=== PATIENT | male | born 1990 | race Caucasian/White ===

== ENCOUNTER 2018-03-18 12:24 | Emergency (ER) | payer OTHER ==
[~2018-03-18] VITALS: Ht 195.6 cm; Wt 122.5 kg
[2018-03-18 13:14] LABS: INFLUENZA A ANTIGEN None Detected (None Detect); INFLUENZA B ANTIGEN None Detected (None Detect)
[2018-03-18] MEDS ORDERED: PROAIR HFA8.5 GM INH (13:39)
[2018-03-18 14:04] VITALS: BP 114/78
[2018-03-18] MEDS ORDERED: PROZAC20 MG PO (14:06)
[2018-03-18] MEDS ORDERED: OMEPRAZOLE40 MG PO (14:06)
== END 2018-03-18 14:04 | disposition home or self-care (01) ==
LOC: M.ERS 12:24
PROVIDERS: Nurse Practitioner Family
DX: J20.8 Acute bronchitis due to other specified organisms (principal); B97.89 Other viral agents as the cause of diseases classified elsewhere